=== PATIENT | male | born 1990 | race Caucasian/White ===

== ENCOUNTER 2017-09-11 16:12 | Day surgery (SDC) | payer OTHER ==
[~2017-09-11] VITALS: Ht 172.7 cm; Wt 105.0 kg
[2017-09-11 16:15] VITALS: BP 139/67; PULSE 68; RESP 18; TEMP 98.1; O2SAT 100
--- NOTE | 2017-09-11 16:41 | RADRPT ---
EXAM DATE/TIME: 09/11/2017 16:32 [place] COMPARISON: No previous studies available for comparison. INDICATIONS : Left hand, 3rd digit pain after cutting tip of finger in a car engine. MEDICAL HISTORY : None. SURGICAL HISTORY : None. ENCOUNTER: Initial ACUITY: 1 day PAIN SCORE: 5/10 LOCATION: Right distal hand, 3rd digit. FINDINGS: The third distal phalanx has been amputated. There is a fracture involving the base of the distal pha lanx this left. No joint dislocation at the PIP joint. The rest of the bony structures are intact. Th ere is soft tissue injury to the tip of the third finger. CONCLUSION: Amputation/fracture through the base of the distal third phalanx. Enrrique Comer MD on September 11, 2017 at 16:38 Board Certified Radiologist. This report was verified electronically.
--- NOTE | 2017-09-11 18:55 | PD ---
HPI Chief Complaint: Injury Time Seen by Provider: 18:41 Travel History International Travel<30 days: No Contact w/Intl Traveler<30days: No Traveled to known affect area: No History of Present Illness HPI The patient is a 26-year-old male who presents to the emergency department for partially amputated third digit of the right hand. The patient states the accident occurred approximately 1 PM, he got the distal aspect of the third digit, right hand, stuck in a claudette. The patient was seen at [facility], however, they told him he did not have a hand surgeon a tetanus shot administered, no pain medication administered, and there is no digital block. The patient does complain of mild pain. He is right-hand dominant. He denies any chronic medical problems, daily medications, or allergies. He denies any other complaints. [facility] Past Medical History Medical History: Denies Significant Hx Past Surgical History Narrative Surgical Tonsillectomy Social History Tobacco Use: Yes (Chewing tobacco, no cigarettes) Allergies-Medications (Allergen,Severity, Reaction): Coded Allergies: No Known Allergies (Unverified , 09/11/17) Review of Systems Except as stated in HPI: all other systems reviewed are Neg Musculoskeletal: Positive: Pain Skin: Positive Other (As noted in the history of present illness) Physical Exam Narrative GENERAL: Awake, alert, pleasant 26-year-old male who appears his stated age and is in no acute respiratory distress. SKIN: Focused skin assessment warm/dry. HEAD: Atraumatic. Normocephalic. EYES: No injection or drainage. ENT: No nasal bleeding or discharge. Mucous membranes pink and moist. NECK: Trachea midline. No JVD. CARDIOVASCULAR: Regular rate and rhythm. No murmur appreciated. RESPIRATORY: No accessory muscle use. Clear to auscultation. Breath sounds equal bilaterally. GASTROINTESTINAL: Abdomen soft, non-tender, nondistended. MUSCULOSKELETAL: Partial limitation of the distal phalanx third digit right hand. Patient is able to flex at the MCP and PIP, limited range of motion of the DIP secondary to pain. Positive right radial pulse. NEUROLOGICAL: Awake and alert. No obvious cranial nerve deficits. Motor grossly within normal limits. Normal speech. PSYCHIATRIC: Appropriate mood and affect; insight and judgment normal. Data Data Last Documented VS Vital Signs Date Time Temp Pulse Resp B/P (MAP) Pulse Ox O2 Delivery O2 Flow Rate FiO2 09/11/17 16:15 98.1 68 18 139/67 (91) 100 Orders Orders Finger (Dos5ibc) (09/11/17 ) NPO (09/11/17 18:55) Cefazolin 2 Gm Premix (Ancef 2 Gm Premix (09/11/17 19:00) Ns (Bolus) Inj (09/11/17 19:00) MDM Medical Decision Making Medical Screen Exam Complete: Yes Emergency Medical Condition: Yes Medical Record Reviewed: Yes Interpretation(s) Last Impressions Finger X-Ray 09/11/17 0000 Signed Impressions: Service Date/Time: August 16:32 - CONCLUSION: Amputation/fracture through the base of the distal third phalanx. Enrrique Comer MD Differential Diagnosis Differential diagnosis includes open fracture, partial amputation, dislocation, avulsion fracture, tuft fracture, tendon injury, neurovascular injury. Narrative Course X-ray was ordered in triage which reveals a partial amputation of the distal third phalanx. I discussed the patient with the on-call hand surgeon, Dr. Loyola , reviewed the x-ray and will take the patient to same-day surgery for definitive management. Patient has no chronic medical problems, therefore, no baseline labs were ordered. 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 The patient will be kept n.p.o. Physician Communication Physician Communication I discussed the patient with Dr. Loyola who will take the patient to same-day surgery. Diagnosis Primary Impression: Partial traumatic transphalangeal amputation of finger Qualified Codes: S68.629A - Partial traumatic transphalangeal amputation of unspecified finger, initial encounter Admitting Information Admitting Physician Requests: Observation Condition: Stable Arnold Gonsales MD September 11, 2017 18:55
[2017-09-11] MEDS ORDERED: NEOMYCIN/POLYMYXIN 1 ML G.U. IRRIGANT ONE (18:57)
[2017-09-11] MEDS ORDERED: SODIUM CHLOR 0.9% 1000 ML INJ 1,000 ML IV ONE (19:00)
[2017-09-11] MEDS ORDERED: ceFAZolin 2 GM PREMIX 50 ML IV ONE (19:00)
[2017-09-11] MEDS ORDERED: ONDANSETRON HCL 4 MG/2 ML VIAL IV PUSH ONE (19:10)
[2017-09-11] MEDS ORDERED: LIDOCAINE HCL 1% PF 5 ML SYRINGE OTHER ONE (19:10)
[2017-09-11] MEDS ORDERED: DEXAMETHASONE SOD PHOS 4 MG/ML VIAL IV ONE (19:10)
[2017-09-11] MEDS ORDERED: PROPOFOL 200 MG/20 ML AMP IV ONE (19:10)
[2017-09-11] MEDS ORDERED: fentaNYL CITRATE 250 MCG/5 ML AMP ONE (19:23)
[2017-09-11] MEDS ORDERED: ACETAMINOPHEN 1000 MG/100 ML 100 ML IV ONE (19:23)
[2017-09-11] MEDS ORDERED: MIDAZOLAM HCL 2 MG/2 ML VIAL ONE (19:38)
[2017-09-11] MEDS ORDERED: BACITRACIN TOP OINT 15 GM TUBE ONE (20:07)
[2017-09-11] MEDS ORDERED: LIDOCAINE HCL 2% PF 10 ML VIAL ONE (20:10)
[2017-09-11] MEDS ORDERED: BACT800T5 PO (20:58)
[2017-09-11] MEDS ORDERED: NORC5TAB PO (20:59)
[2017-09-11] MEDS ORDERED: *MEPERIDINE 25 MG INJ VIAL PERIprocedural Use ONLY ONE (20:59)
--- NOTE | 2017-09-11 20:59 | MB ---
cc: Ayana Loyola MD, Sarah E MD DATE: 09/11/2017 REASON FOR CONSULTATION: Amputation, right middle finger through the distal phalanx. HISTORY OF PRESENT ILLNESS: Jason Allen is a 26-year-old right hand dominant male who was at work today when his right finger got caught in a machine amputating the distal tip of the finger. This occurred around approximately 1 p.m. The patient went to an outside hospital where he was unable to be treated and presented to [place] for evaluation. He denies any prior significant injuries to the right hand. He reports pain and paresthesias over the right hand. The only injury is over the right middle finger. The patient is able to flex at FDS. He is unable to fire FDP. There was obvious bleeding and exposed bone from the distal tip of the finger. The nail bed has been amputated. PAST MEDICAL HISTORY: Denies. PAST SURGICAL HISTORY: Tonsillectomy. SOCIAL HISTORY: The patient chews tobacco. Denies any cigarette use. Denies any drug use. Social alcohol use. ALLERGIES: NO KNOWN DRUG ALLERGIES. REVIEW OF SYSTEMS: Denies. PHYSICAL EXAMINATION: The patient is alert and oriented. There is absence of the finger just distal to the nail bed. The patient is able to bend at the PIP. Sensation intact proximal to the flap. Good capillary refill proximal to the flap. Sharp amputation again through the distal phalanx. IMAGING STUDIES: X-rays show amputation through the most proximal aspect of the distal phalanx. The patient does not have the retained piece. ASSESSMENT: A 26-year-old male with an amputation of the right middle finger at the distal phalanx. PLAN: I recommend irrigation, debridement, revision of the amputation. The patient elected to proceed. Risks were explained to him to include wound complications, infection, stiffness, pain, need for additional surgery and he elected to proceed. Ayana Loyola MD [facility]/ , 08:39 PM , 08:57 PM [facility]
[2017-09-11] MEDS ORDERED: DO NOT ADM ANY ANTICOAGULANT DRUGS PRN (21:00)
[2017-09-11] MEDS ORDERED: HYDROmorphone HCL PF 2 MG/ML VIAL IV PRN (21:00)
--- NOTE | 2017-09-11 21:05 | MP ---
cc: Ayana Loyola MD, Sarah E MD DATE OF OPERATION: 09/11/2017 PREOPERATIVE DIAGNOSIS: Amputation of the right middle finger through the distal phalanx. POSTOPERATIVE DIAGNOSIS: Amputation of the right middle finger through the distal phalanx. PROCEDURE: 1. Irrigation, debridement, right middle finger, including skin, subcutaneous tissue, muscle and bone. 2. Revision amputation including direct closure neurectomies right middle finger at the level of the distal interphalangeal joint. SURGEON: Dr. Ayana Loyola. ANESTHESIA: General and local. COMPLICATIONS: None. TOURNIQUET TIME: 12 minutes at 250 mmHg. INDICATIONS FOR PROCEDURE: Jason Allen is a 26-year-old right hand dominant male who sustained an amputation through the right middle finger at the proximal aspect of the distal phalanx. He would like to proceed with surgical intervention. Risks were explained to him to include wound complication, infection, stiffness, pain, paresthesias, need for additional surgery and he elected to proceed. DESCRIPTION OF PROCEDURE: The patient was identified in the preoperative holding area and the correct extremity was marked. The patient was taken to the operating room. where anesthesia was induced. The right upper extremity was prepped and draped in normal sterile fashion. A digital block was performed using approximately 10 mL of 2% lidocaine with no epinephrine. The wound was irrigated with antibiotic saline and debrided using rongeurs and curettes. The remaining portion of the distal phalanx was excised as the flexor digitorum profundus was avulsed off of this. The remainder of the nail bed and nail plate and germinal matrix was ablated. Following this, there was a good skin closure over the remaining bone through the distal interphalangeal joint. This was closed loosely with chromic after neurectomies were performed. The patient was placed into a soft dressing, awoken from anesthesia without any complications. MD BOO Herrera/ , 08:42 PM , 09:03 PM [facility]
[2017-09-11 21:15] VITALS: BP 132/87
[2017-09-11] MEDS ORDERED: ONDANSETRON ODT 4 MG TAB PO PRN (21:15)
[2017-09-11 21:30] VITALS: PULSE 75; RESP 18; TEMP 98.1; O2SAT 99
== END 2017-09-11 21:30 | disposition home or self-care (01) ==
LOC: NEPD 16:12 → NEDA 19:11 → NEPD 19:11 → NEDA 21:30
PROVIDERS: ATTEND Orthopaedic Surgery
DX: S68.622A Partial traumatic transphalangeal amputation of right middle finger, initial encounter (principal); Z72.0 Tobacco use; W31.9XXA Contact with unspecified machinery, initial encounter; Y99.0 Civilian activity done for income or pay
CPT/HCPCS: 01830; 26951; 73140; 76000; 96374; 99284; J0131; J0690; J1100; J2175; J2250; J2405; J3010; J7030